=== PATIENT | male | born 1985 | race Caucasian/White ===

== ENCOUNTER 2024-03-19 19:47 | Emergency (ER) | payer BC, SELFPAY ==
[2024-03-19 19:52] VITALS: BP 177/89
[2024-03-19] MEDS: DELTASONE 50 MG PO (20:51)
[2024-03-19] MEDS: TYLENOL 1000 MG PO (20:51)
[2024-03-19 20:53] VITALS: BMI 23.7
--- NOTE | 2024-03-19 21:05 | ED.GENMED ---
History of Present Illness
General
Chief Complaint: Skin Problem
Source: patient
Exam Limitations: none
Time Seen by Provider: 03/19/24 20:02
Nursing documentation reviewed up to this point in time: agreed with
Travel History
Have you had any contact with someone who has COVID-19?: No
Do you have any symptoms of coronavirus? Fever > 100 degrees, chills, cough, shortness of breath, sore throat, loss of taste or smell, muscle aches, or headache?: No
History of Present Illness
History of Present Illness:
Patient is a 38-year-old male who presents to the emergency department complaining of a rash on the right side of his head and now is developing swelling and pain in his neck. This started 1 week ago. Patient states the pain has become sharp and
intense. Patient went to an urgent care and was started on Keflex. Pain started getting worse and he felt throbbing and pain on the right side of his neck. Patient denies any difficulty swallowing, change in voice or shortness of breath. Patient
denies fever or chills. Patient does not smoke. Patient denies any previous history of similar episodes. Patient denies any pruritus. Patient just complains of increasing pain as intermittently throbbing and sharp with the same going down to the
right side of his neck posteriorly
Past History
Past History
ED Past Medical History: None
ED Past Surgical History: None
Social History
Tobacco: Non-smoker
Alcohol: Occasional
Personal: Single
Living: with family
Employment: Employed
Family History
Family History: Negative Diabetes, Hypertension or CAD
Review of Systems
Review of Systems
All Other Systems: Not applicable
Phy Exam
Physical Exam
Physical Exam:
Physical Exam
General: mild distress, alert and appropriate, well nourished, well hydrated
HENT: Normocephalic with right temporoparietal erythematous papular rash, supple with no lymphadenopathy but ropiness in the posterior cervical region on the right. Oropharynx is clear. No submandibular or sublingual
swelling or lesions.
Eyes: Clear sclera, conjuctiva without injection
Heart: Regular rhythm and rate. No S3, S4. No murmur.
Lungs: No respiratory distress, no stridor, lung sounds clear and equal bilaterally
Neuro: Alert and oriented x 3, CN II - XII intact, no motor focality, no cerebellar dysfunction
Skin: As stated above
Psychiatric: well kept. interactive and cooperative
Extremities: No edema, cyanosis
Course
Orders/Labs/Results
Orders:
Orders
03/19/24 20:47
Acetaminophen [Tylenol] 1,000 mg PO NOW STA
Prednisone [Deltasone] 50 mg PO NOW STA
03/19/24 21:03
Famciclovir [Famvir] 500 mg PO NOW STA
03/19/24 21:04
Doxycycline [Vibramycin] 100 mg PO NOW STA
Vital Signs
Initial and Last Documented VS:
Initial Vital Signs
Temp Pulse Resp BP Pulse Ox
98.3 F 77 20 177/89 99
03/19/24 19:52 03/19/24 19:52 03/19/24 19:52 03/19/24 19:52 03/19/24 19:52
Last Documented Vital Signs
Temp Pulse Resp BP Pulse Ox
98.3 F 77 20 177/89 99
03/19/24 19:52 03/19/24 19:52 03/19/24 19:52 03/19/24 19:52 03/19/24 19:52
*Radiology
Radiology exam reviewed: other (na)
*Pulse Oximetry
Patient hypoxic: no
*EKG
Interpreted by ED Provider?: NA
*Clinical Support Manager Interpretation
Rate: Clinical Support Manager- N/A
*Critical Care Note
Total Time (30-74mins, 75-104mins- exclusive of procedures): Not Applicable
Update Note
Update Note:
Looking at the rash and the position of the rash believe this to be shingles/herpes zoster. However given the reactive inflammation such in the right posterior cervical region will also treat for possible secondary cellulitis and inflammation.
Patient will be discharged.
ED Attending Note
-
Portions of this chart may have been created with voice recognition software.� Occasional wrong word or��sound alike� substitutions may have occurred due to the inherent limitations of voice recognition software.
Discharge Plan
Departure
Patient Disposition: Home (Routine Discharge)
Date of Disposition: 03/19/24
Time of Disposition: 21:10
Patient with high blood pressure during this ER visit?: Yes
Condition: Good
Covid-19: Not Applicable
Discharge Problem:
Herpes zoster
Instructions: Cellulitis (Skin Infection), Adult (DC), Shingles, BLOOD PRESSURE
Prescriptions:
New
prednisone 20 mg tablet
20 mg PO BID Qty: 10 0RF
doxycycline monohydrate 100 mg capsule
100 mg PO BID Qty: 14 0RF
famciclovir 500 mg tablet
500 mg PO Q8H 7 Days Qty: 21 0RF
No Action
clarithromycin 500 MG tablet
500 mg PO Q12H
Patient Comments:
pt has had total 2 doses
ondansetron HCl [Zofran] 8 MG tablet
8 mg PO TIDPRN PRN (Reason: nausea) Qty: 15 0RF
hydromorphone [Dilaudid] 2 MG tablet
2 - 4 mg PO Q4HPRN PRN (Reason: pain) Qty: 20 0RF
amoxicillin 875 MG tablet
875 mg PO BID Qty: 42 0RF
hydrocodone-acetaminophen [Vicodin] 1 EACH tablet
1 ea PO Q6HPRN PRN (Reason: pain) Qty: 14 0RF
Referrals:
Darren Shine DO [Family Provider] - Follow up in 5-7 days
Activity Restrictions/Additional Instructions:
Acetaminophen 1000 mg every 6 hours for discomfort
Interventions
Interventions:
*Risk Screen - Suicide Last Done: 03/19/24 19:52
*General Assessment Last Done: 03/19/24 19:52
*Neglect/Abuse Screening Last Done: 03/19/24 19:52
ED- Fall Risk Assessment Last Done: 03/19/24 20:54
*ED COVID-19 Vaccine History Last Done: 03/19/24 20:54
ED-Skin Assessment Last Done: 03/19/24 20:54
Discharge Date and Time
Print Language: [place]
[2024-03-19] MEDS: VIBRAMYCIN 100 MG PO (21:25)
[2024-03-19] MEDS: FAMVIR 500 MG PO (21:26)
== END 2024-03-19 21:27 | disposition home or self-care (01) ==
LOC: EMR 19:47
PROVIDERS: EMERGENCY PHYSICIAN Emergency Medicine; FAMILY PHYSICIAN Family Medicine
DX: B02.9 Zoster without complications (principal)
CPT/HCPCS: 99282

== ENCOUNTER → 2024-12-17 14:43 | Outpatient (REF) | payer BC, SELFPAY | LOC: RCS 14:43 | PROVIDERS: ATTENDING PHYSICIAN Nuclear Medicine Nuclear Cardiology; FAMILY PHYSICIAN Family Medicine | DX: R03.0 Elevated blood-pressure reading, without diagnosis of hypertension (principal); E78.5 Hyperlipidemia, unspecified; R07.89 Other chest pain; Z82.49 Family history of ischemic heart disease and other diseases of the circulatory system | CPT/HCPCS: 93017 ==

== ENCOUNTER → 2024-12-27 15:46 | Outpatient (REF) | payer BC, SELFPAY | LOC: HWRCS 15:46 | PROVIDERS: ATTENDING PHYSICIAN Nuclear Medicine Nuclear Cardiology; FAMILY PHYSICIAN Family Medicine | DX: R03.0 Elevated blood-pressure reading, without diagnosis of hypertension (principal); E78.5 Hyperlipidemia, unspecified; R07.89 Other chest pain; Z82.49 Family history of ischemic heart disease and other diseases of the circulatory system | CPT/HCPCS: 93306 ==

== ENCOUNTER → 2025-03-26 10:04 | Outpatient (REF) | payer BC, SELFPAY | LOC: RAD 10:04 | PROVIDERS: ATTENDING PHYSICIAN Nuclear Medicine Nuclear Cardiology; FAMILY PHYSICIAN Family Medicine | DX: R07.89 Other chest pain (principal); E78.5 Hyperlipidemia, unspecified; Z82.49 Family history of ischemic heart disease and other diseases of the circulatory system | CPT/HCPCS: 75574; Q9967 ==